=== PATIENT | female | born 1985 | race African-American/Black ===

== ENCOUNTER 2018-07-04 10:01 | Emergency (ER) | payer OTHER ==
[~2018-07-04] VITALS: Ht 157.5 cm; Wt 56.7 kg
== END 2018-07-04 10:39 | disposition home or self-care (01) ==
LOC: ER 10:01
DX: L02.416 Cutaneous abscess of left lower limb (principal)

== ENCOUNTER → 2021-03-26 08:00 | Outpatient (CLI) | payer OTHER | END | disposition home or self-care (01) | LOC: PPH VACUNA 08:00 | PROVIDERS: ATTEND Emergency Medicine Pediatric Emergency Medicine | DX: Z23 Encounter for immunization (principal) ==